=== PATIENT | female | born 1965 | race Caucasian/White ===

== ENCOUNTER → 2020-09-01 | Outpatient (CLI) | payer OTHER ==
[~2020-09-01] MED LIST: AMIT25TA PO; ESTR1.25 PO; FENO135C4 PO; FLUT1DIS3 INH; LEVO5TAB2 PO; MONT10TA11 PO; PIRB14AE3 INH; PROM25TA10 PO; SUMA100T4 PO; TOPI25TA8 PO
== END | disposition home or self-care (01) ==
LOC: CFH 14:11
PROVIDERS: ATTEND Nurse Practitioner Family
DX: N60.01 Solitary cyst of right breast (principal)
CPT/HCPCS: 76642; 77065; G0279